=== PATIENT | male | born 1970 | race Caucasian/White ===

== ENCOUNTER 2019-01-20 09:58 | Day surgery (SDC) | payer BC ==
[2019-01-13 11:06] LABS: BASO % 0.1 % (0-6); EOS % 3.8 % (0-6); GRAN % 70.9 % (47-80); HEMATOCRIT 44.9 % (42.0-52.0); HEMOGLOBIN 15.4 gm/dl (14.0-18.0); LYMPH % 17.3 % (16-45); MEAN CORPUSCULAR HEMOGLOBIN 30.2 pg (27-33); MEAN CORPUSCULAR HGB CONC 34.3 g/dl (32-36); MEAN PLATELET VOLUME 9.9 fl (7.4-10.4); MONO % 7.9 % (0-9); PLATELET COUNT 214 K/uL (130-400); RED CELL DISTRIBUTION WIDTH 12.8 % (11.5-14.5); WHITE BLOOD COUNT W/O DIFF 8.7 K/uL (4.2-12.2)
[2019-01-13 11:23] LABS: BLOOD UREA NITROGEN 25 mg/dL (6-20); EST GLOMERULAR FILTRATION RATE > 60 mL/min; GLUCOSE,RANDOM 125 mg/dL (74-109)
[~2019-01-20 09:58] MED LIST: ACETAMINOPHEN 1,000 MG/100 ML BTL IV ONE
[2019-01-20] MEDS ORDERED: FENTANYL PF 100MCG/2ML VIAL IV ONE (09:59)
[2019-01-20] MEDS ORDERED: PROPOFOL 10 MG/ML VIAL IV ONE (09:59)
[2019-01-20] MEDS ORDERED: MIDAZOLAM HCL 2MG/2ML VIAL IV ONE (09:59)
[2019-01-20] MEDS ORDERED: LIDOCAINE 2% MDV (20MG/ML) 20ML VIAL IV ONE (09:59)
[2019-01-20] MEDS ORDERED: ONDANSETRON HCL IV 4 MG/2 ML VIAL IVP ONE (09:59)
[2019-01-20] MEDS ORDERED: SEVOFLURANE 250 ML INH ONE (09:59)
[2019-01-20] MEDS ORDERED: BUPIVACAINE 0.25% W/EPI MPF 30ML VIAL SQ ONE (12:34)
--- NOTE | 2019-01-21 08:30 | Operative Note ---
DATE OF SURGERY: 01/20/2019 Surgeon: Charly Mckay DO PREOPERATIVE DIAGNOSES: 1. Torn lateral meniscus of the right knee. 2. Chondromalacia of the right knee. POSTOPERATIVE DIAGNOSES: 1. Torn lateral meniscus and torn medial meniscus of the right knee. 2. Chondromalacia of the patella, right knee. 3. Chondrocalcinosis, right knee. OPERATION: 1. Arthroscopic partial medial and lateral meniscectomy, right knee. 2. Arthroscopic chondroplasty of the patella, right knee. DESCRIPTION OF PROCEDURE: This 48-year-old male was taken to the operating room and placed in the supine position on the operating room table. A general anesthetic was administered and the right knee was elevated, prepped with Hibiclens, and draped in the usual sterile fashion after exsanguination and tourniquet elevation to 300 mmHg. Arthroscopic knee rausch applied. CC: Royer Marroquin DO MTDAdal
--- NOTE | 2019-01-30 07:51 | Operative Note ---
DATE OF SURGERY: 01/20/2019 Surgeon: Charly Mckay DO PREOPERATIVE DIAGNOSES: 1. Torn lateral meniscus of the right knee. 2. Chondromalacia of the right knee. POSTOPERATIVE DIAGNOSES: 1. Torn medial and lateral meniscus of the right knee. 2. Chondromalacia of the patella right knee. 3. Chondrocalcinosis right knee. OPERATION: Arthroscopic partial medial and lateral meniscectomy of the right knee. DESCRIPTION OF PROCEDURE: This 48-year-old male was taken to the operating room and placed in the supine position on the operating room table. A general anesthetic was administered. The right knee was elevated, exsanguinated, and the tourniquet inflated to 300 mmHg. Arthroscopic knee rausch applied. Right knee prepped with Hibiclens and draped in the usual sterile fashion. An inferolateral portal was established for the 4 mm arthroscope and initial evaluation of the joint demonstrated normal appearance of the suprapatellar pouch but there was evidence of grade 2 chondromalacia of the patella with grossly unstable articular cartilage being noted there. Chondroplasty was performed through an inferomedial portal. We then directed our attention to the trochlea which essentially appeared to be normal. The medial compartment was entered, and a tear of the medial meniscus was noted as well with a radial flap tear being noted at approximately the 10-o'clock position. Utilizing the basket forceps and rotating shaver, we resected the unstable fragments of the medial meniscus and it was further smoothed, trimmed, and balanced with the rotating shaver. It was then probed and confirmed to be stable. We then directed our attention to the intracondylar notch, and this appeared to be normal. However, there was evidence of chondrocalcinosis both in the medial compartment, intracondylar notch, and lateral compartment. We attempted to dislodge and evacuate as much of this as possible. The lateral compartment was entered, and a complex tear of the lateral meniscus was present extending from the anterior horn all the way around to the posterior horn involving the entire meniscus, most severe along the approximately 2- to 3-o'clock position. This did not violate the popliteal hiatus. Utilizing the basket forceps and rotating shaver, we resected unstable fragments of the lateral meniscus. Most of the anterior horn was simply shredded. This was debrided and it was re-probed and confirmed to be stable. The wound was copiously irrigated, suctioned, and the instruments removed. The portals infiltrated with 0.25% Marcaine with epinephrine. Sterile dressings applied and the tourniquet and knee rausch released. The patient taken to the recovery room in satisfactory condition. GROSS PATHOLOGY: This patient demonstrated complex tear of the lateral meniscus, small radial tear of the medial meniscus, chondromalacia being noted of the patella which was debrided in the manner described above. Chondrocalcinosis was also identified as described. VALERIE
== END 2019-01-20 14:00 | disposition home or self-care (01) ==
LOC: SUR 09:58
PROVIDERS: ATTEND Orthopaedic Surgery
DX: S83.271A Complex tear of lateral meniscus, current injury, right knee, initial encounter (principal); S83.241A Other tear of medial meniscus, current injury, right knee, initial encounter; M94.261 Chondromalacia, right knee; M11.261 Other chondrocalcinosis, right knee; E11.9 Type 2 diabetes mellitus without complications; Z79.4 Long term (current) use of insulin; G62.9 Polyneuropathy, unspecified
CPT/HCPCS: 29880; 01400; 85025; 80048; J2405; J3010